=== PATIENT | male | born 1985 | race Caucasian/White ===

== ENCOUNTER 2017-08-25 01:11 | Emergency (ER) | payer MEDICAID, OTHER ==
[2017-08-25 01:23] VITALS: RESP 16
[2017-08-25] MEDS ORDERED: IBUPROFEN 600 MG TAB PO ONE (01:23)
[2017-08-25] MEDS ORDERED: TDAP ADULT 0.5 ML INJ (BOOSTRIX) IM ONE (01:24)
--- NOTE | 2017-08-25 01:45 | EDPHY ---
H & P Time Seen by Provider: 08/25/17 01:20 HPI/ROS: Chief complaint: Laceration left hand, non dominant HPI: 31-year-old male went to do some woodworking in the latter part of the night just before bed. Unfortunately, the chisel held in his right hand slipped and sustained a laceration to the thenar eminence on the left hand. This happened approximately 0.5 hr ago. He reports no numbness or tingling. He has full function of the hand, except for that associated with movement of the hand causing pain. 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 Contamination: None FB possibility denies, was not wearing gloves. Does not believe any the wood got inside wound. Clean did effectively at home with under running water Last Td or TDAP: more than 5 years less than 10 years Work: He is an trial attorney Avocation: Would working, is not musician ROS Neuro: No numbness or tingling or loss of sensation Smoking Status: Never smoked Physical Exam: Gen: Well-developed. Well-nourished. No odor of alcohol. Nontoxic. Afebrile. Extremity: There is a 2 cm cm, linear laceration that is full thickness to the left palm thenar eminence . Function Without signs of tendon dysfunction NV Status: Intact. Two-point discrimination is intact CMS: Intact Constitutional: Initial Vital Signs Temperature (C) 36.9 C 08/25/17 01:16 Heart Rate 70 08/25/17 01:16 Respiratory Rate 16 08/25/17 01:16 Blood Pressure 116/67 08/25/17 01:16 O2 Sat (%) 98 08/25/17 01:16 O2 Delivery Mode Room Air Allergies/Adverse Reactions: No Known Allergies Allergy (Verified 08/25/17 01:13) Home Medications: Medication Instructions Recorded Adderall 10 MG (RX) 04/29/14 Atenolol [Tenormin 25 mg (*)] 04/29/14 Medical Decision Making Procedures: Procedure: Laceration repair. Laceration Repair: Options presented to [patient], consented to repair. After skin prep with [chloraseptic] the wound was anesthesized with [locally infiltrated] with [lidocaine 1 %] [without epinephrine] the wound was [ Cleansed with irrigation by Tech] The length of the wound was 2 cm, along the axis. Inspection and exploration of the wound, with gloved finger and forceps ,prior to closure revealed no evidence of foreign body and no involvement of deeper structures. Closure was obtained using 4 0 nylon running suture, 4 throws. He tolerated this well. He did feel the very apex of the wound a little bit toward the pinky side. Anticipated this due to the depth of the wound as 1 cm thereby collecting some the anesthetic rather the tissue per se. No penetration deeper than the soft tissue fat, no muscle involvement. Nl finger and thumb function. At the end of the procedure, wound edges were well approximated and hemostasis was achieved. Patient tolerated procedure well. ED Course/Re-evaluation: We did review the potential for retained foreign body due to the depth of the wound as well as potential for nerve injury though the 2 point discrimination at this time is negative. Differential Diagnosis: Diagnostic considerations include, but are not limited to, the following: Laceration, retained FB, tendon injury, fracture. - Data Points Medications Given: Discontinued Medications Diphtheria/Tetanus/Acell Pertussis (Boostrix) 0.5 ml IM .ONCE ONE Stop: 08/25/17 01:25 Last Admin: 08/25/17 01:44 Dose: 0.5 ml Ibuprofen (Motrin) 600 mg PO EDNOW ONE Stop: 08/25/17 01:24 Last Admin: 08/25/17 01:44 Dose: 600 mg Departure - Departure Disposition: Home, Routine, Self-Care Clinical Impression: Laceration of hand Qualifiers: Encounter type: initial encounter Foreign body presence: without foreign body Laterality: left Qualified Code(s): S61.412A - Laceration without foreign body of left hand, initial encounter Condition: Good Instructions: Laceration (ED) Additional Instructions: Keep the hand clean and dry. Clean 3 times daily with hydrogen peroxide. Keep the wound covered with a bandage. Apply bacitracin after cleaning. However, if the wound edges appear white then omit the bacitracin. Sutures out in 10 days. Tylenol and Advil works well together the combination: Tylenol 1000 mg and 600 mg every 8 hours. Referrals: Patient,NotPresent [Primary Care Provider] - As per Instructions
[2017-08-25 03:27] VITALS: BP 121/72; PULSE 78; TEMP 97.5; O2SAT 95
== END 2017-08-25 03:10 | disposition home or self-care (01) ==
LOC: CED 01:11
PROC: 0HQGXZZ Repair Left Hand Skin, External Approach (ICD-10-PCS; principal; 2017-08-25)
DX: S61.412A Laceration without foreign body of left hand, initial encounter (principal); Z23 Encounter for immunization; W27.0XXA Contact with workbench tool, initial encounter